=== PATIENT | female | born 1980 | race Caucasian/White ===

== ENCOUNTER → 2018-12-11 08:39 | Outpatient (CLI) | payer SELFPAY ==
[2018-12-11 10:22] LABS: Hematocrit 43.5 % (37-47); Hemoglobin 14.8 g/dl (12.0-15.0); Mean Corpuscular Hgb 31.2 pg (27.0-32.0); Mean Corpuscular Volume 91.6 fL (81-99); Mean Platelet Vol. 9.6 fl (6.2-12.0); Platelet Count 330 K/mm3 (150-450); RBC Distribution Width CV 14.5 % (11.6-14.6); RBC Distribution Width SD 47.9 fl (35.1-43.9); Red Blood Count 4.75 M/mm3 (4.2-5.4); White Blood Count 11.8 K/mm3 (4.4-11.0)
[2018-12-11 10:23] LABS: Scan Indicated on CBC? Y/N NO
[2018-12-11 10:51] LABS: Vitamin D,25 Hydroxy 25.4 ng/mL (29.95-100.01)
[2018-12-11 10:58] LABS: Anion Gap 11 (5-15); BUN 10 mg/dL (7-18); BUN/Creat Ratio 12.7 RATIO (10-20); Calcium,Total 8.6 mg/dL (8.5-10.1); Chloride 108 mmol/L (98-107); Cholesterol 168 mg/dL (200); Creatinine, Serum 0.79 mg/dL (0.55-1.02); EST Glomerular Filtration Rate 87 mL/min (>60); Est Glom Filt Rate - Afr Amer 106 mL/min (>60); Glucose 95 mg/dL (74-106); High Density Lipoprotein 36 mg/dL; Potassium 3.9 mmol/L (3.5-5.1); Sodium Level 141 mmol/L (136-145); Triglycerides 108 mg/dL; Very Low Density Lipoprotein 22 mg/dL (5-40)
== END ==
PROVIDERS: Family Provider Family Medicine; PCP Family Medicine; Referring Provider Family Medicine; Visit Provider Family Medicine
DX: Z13.220 Encounter for screening for lipoid disorders (principal); M79.7 Fibromyalgia; R53.81 Other malaise
CPT/HCPCS: 36415; 80048; 80061; 82306; 85027

== ENCOUNTER → 2019-09-03 09:33 | Outpatient (CLI) | payer BC, SELFPAY ==
[2019-09-03 13:11] LABS: Free T3 1.9 pg/mL (2.18-3.98); T4 Free Direct 0.59 ng/dL (0.76-1.46); Thyroid Stim Hormone (TSH) 3.69 uIU/mL (0.358-3.74)
== END ==
PROVIDERS: PCP Family Medicine; Referring Provider Family Medicine; Visit Provider Family Medicine
DX: E03.9 Hypothyroidism, unspecified (principal)
CPT/HCPCS: 36415; 84439; 84443; 84481

== ENCOUNTER → 2020-02-11 | Outpatient (CLI) | payer BC, SELFPAY ==
[2020-02-11 10:27] LABS: T4 Free Direct 0.86 ng/dL (0.76-1.46)
== END | disposition home or self-care (01) ==
LOC: MFPLAB 09:12
PROVIDERS: PCP Family Medicine; Referring Provider Family Medicine; Visit Provider Family Medicine
DX: E03.9 Hypothyroidism, unspecified (principal)
CPT/HCPCS: 36415; 84439; 84443; 84481

== ENCOUNTER → 2020-02-22 | Outpatient (CLI) | payer BC, SELFPAY | END | disposition home or self-care (01) | LOC: LABSPEC 15:33 | PROVIDERS: PCP Family Medicine; Referring Provider Family Medicine; Visit Provider Family Medicine | DX: Z20.828 Contact with and (suspected) exposure to other viral communicable diseases (principal) | CPT/HCPCS: 87635; U0003 ==

== ENCOUNTER → 2020-03-14 09:45 | Outpatient (CLI) | payer BC, SELFPAY ==
--- NOTE | 2020-03-14 09:47 | RAD_ITS ---
STUDY: X-RAY - LEFT ANKLE REASON FOR EXAM: Female, 40 years old. Pt fell last night, left ankle pain now TECHNIQUE: 3 view(s) of the ankle. COMPARISON: None. FINDINGS: Normal visualized distal tibia and fibula. Normal medial and lateral malleoli. Normal tibiotalar articulation and ankle mortise. A spur is seen at the insertion of the Achilles tendon. Plantar spur. The visualized subtalar, talonavicular, calcaneocuboid and tarsal articulations are normal. Soft tissue swelling overlying the lateral malleolus. RAD/Ankle min 3 Views IMPRESSION: Soft tissue swelling overlying the lateral malleolus. Calcaneal spurs. Electronically Signed: Varun Rosas, at 12:50 EDT , Service support ,
== END ==
LOC: MTRAD 09:47
PROVIDERS: PCP Family Medicine; Referring Provider Family Medicine; Visit Provider Family Medicine
DX: S93.402A Sprain of unspecified ligament of left ankle, initial encounter (principal); W19.XXXA Unspecified fall, initial encounter; M77.32 Calcaneal spur, left foot
CPT/HCPCS: 73610

== ENCOUNTER → 2020-04-21 15:17 | Outpatient (CLI) | payer BC, SELFPAY | PROVIDERS: PCP Family Medicine; Visit Provider Family Medicine | DX: Z20.828 Contact with and (suspected) exposure to other viral communicable diseases (principal) | CPT/HCPCS: 87635; U0003 ==

== ENCOUNTER → 2020-05-05 11:19 | Outpatient (CLI) | payer BC, SELFPAY ==
[2020-05-05 15:17] LABS: Absolute Lymphocyte Count 3.12 X10^3/uL (0.83-4.51); Absolute Neutrophil Count 5.8 X10^3/uL (2.0-7.7); Basophil# 0.07 X10^3/uL; Basophil% 0.7 % (0-1); Eosinophil# 0.41 X10^3/uL; Eosinophils% 4.1 % (0-5); Hematocrit 43.4 % (37-47); Hemoglobin 13.7 g/dL (12.0-15.0); Lymphocyte # 3.12 X10^3/ul (4.0); Lymphocyte % 30.9 % (19-41); Mean Corp Hgb Conc 31.6 g/dL (32-36); Mean Corpuscular Hgb 30.8 pg (27.0-32.0); Mean Corpuscular Volume 97.5 fL (81-99); Mean Platelet Vol. 9.5 fl (6.2-12.0); Monocyte# 0.65 X10^3/uL; Monocyte% 6.4 % (0-10); NRBC Flagged by Analyzer 0 % (0-5); Neutrophil # 5.79 X10^3/uL (2.7-7.7); Neutrophil % 57.3 % (47-70); Platelet Count 322 K/mm3 (150-450); RBC Distribution Width SD 50.9 fl (35.1-43.9); Red Blood Count 4.45 M/mm3 (4.2-5.4); White Blood Count 10.1 K/mm3 (4.4-11.0)
[2020-05-05 15:34] LABS: ALB/GLOB Ratio 0.9 RATIO (0.9-2.4); AST(SGOT) 8 U/L (15-37); Alanine Aminotransfer ALT/SGPT 20 U/L (13-56); Albumin, Serum 3.4 g/dL (3.2-5.0); Alkaline Phosphatase 84 U/L (45-117); Anion Gap 5 (5-15); BUN 9 mg/dL (7-18); BUN/Creat Ratio 9.9 RATIO (10-20); Calcium,Total 9.1 mg/dL (8.5-10.1); Chloride 110 mmol/L (98-107); Creatinine, Serum 0.91 mg/dL (0.55-1.02); EST Glomerular Filtration Rate 74 mL/min (>60); Est Glom Filt Rate - Afr Amer 89 mL/min (>60); Ferritin 236 ng/mL (8-252); Globulin 3.8 g/dL (2.2-4.2); Glucose 84 mg/dL (74-106); Iron 66 ug/dL (50-170); Potassium 4.2 mmol/L (3.5-5.1); Protein, Total 7.2 g/dL (6.4-8.2); Sodium Level 138 mmol/L (136-145); Thyroid Stim Hormone (TSH) 0.75 uIU/mL (0.358-3.74)
[2020-05-05 16:01] LABS: Vitamin B12 352 pg/mL (211-911); Vitamin D,25 Hydroxy 18.9 ng/mL
== END ==
LOC: MFPLAB 11:20
PROVIDERS: PCP Family Medicine; Referring Provider Family Medicine; Visit Provider Family Medicine
DX: R53.83 Other fatigue (principal)
CPT/HCPCS: 36415; 80053; 82306; 82607; 82728; 83540; 84443; 85025

== ENCOUNTER 2020-05-13 17:44 | Outpatient (RCR) | payer BC, SELFPAY ==
--- NOTE | 2020-05-13 18:50 | HP.PTEVAL_ITS ---
Patient's Visit Information CROW MARC is a 40 year old F referred to Physical Therapy by Dr. Ubaldo Garcia MD with a diagnosis of L ankle sprain. Date of Evaluation: 05/13/20 Physical Therapist: Kal Ferrari DPT, OCS, CSCS - Visit Plan Frequency: 1-2x /Week Duration: 4-6 Weeks Plan: start weekly(increase to 2x/week if progress not made quickly with pain, ROM, strength). Progress HEP of ROM(today to strength with band and proprioception adn gait training/pregait. If need increae frequency, will need manual, US and maybe ESTIM. Next: ankle 4 way and SLS if pain down and ROM full. - Subjective Fell off porch 03/14 and rolled adn sprained L ankle. Got brace for a while, now shoe adn light brace. The fall was tripping over water hose. No history with L ankle. Went to doctor next day who x rayed it adn it was fine, just bad sprain. Could not find boot so she bought brace. Hard to walk on at first. A little better now but has to be careful with steps. Tingly in lateral toes at times for nknow reason. Pain is medial and lateral at ankle and constant but worse stabbing and up leg if she steps on it wrong. Still feels weak. Care to be taken with walk. Sleep is OK if she is careful. 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 Is doing this but worse alter in day. No avoidance. Basic aDLs are OK, care to be taken putting on pants sitting down. Putting on shoes is painful and hard due to brace. Cannot run. Steps at home are challenging btu improving. Hobbies include caring for animals and kids(13 adn 16)Nephews 1,3,9) - Pain L ankle Pain Intensity (Out of 10): 3 Pain Intensity Range: 3, 8 Comment: step wrong - Objective L antalgia and avoidance of pushoff walking into PT I with brace on. Steps up with R and down to right, corrected this with her to diminish stress to r ankle and pat needs to use railing. Transfers I. hip and knee aROM and strength about symmetrical. Sensation LE WNL to gross light touch. reflexes 2/3 patella and achilles. metatarsals and big toe move well. ankle AROM L DF 0 PF 40 eversion 0, inversion 25, pain with end eversion adn DF. R ankle df 4, pf 55, eversion 10 and inversion 28. strength L ankle 3+ robinson ll motions, pain with PF, inversion. - talar tilt. - ant drawer at ankle. R ankle 4+/5 all motions at ankle. Swelling is minimal today, no bruising noted. SLS L 2 seconds and R 10+ seconds. - Goals Goal 1:: Full aROM L ankle withotu pain Goal Time Frame: 2-4 Weeks Goal 2:: I appropriate strength L ankle and proprioception to reduce future problems. Goal Time Frame: 4-6 Weeks Goal 3:: Ankle feel 90% back to normal and 1/10 pain at most Goal Time Frame: 4-6 Weeks Goal 4:: Sleep without interruption due to pain Goal Time Frame: 4-6 Weeks Goal 5:: Work without increased pain L ankle Goal Time Frame: 4-6 Weeks Goal 6:: LEFS 60/80 Goal Time Frame: 4-6 Weeks - Rehabilitation Potential Physical Therapy Diagnosis: L ankle sprain. Rehabilitation Potential: Fair - Anticipated Interventions Patient/Client Instruction: Educate patient on: Condition, Plan of Care For the Purpose of:: To decrease pain, To increase ROM, To improve muscle performance and motor function, To increase tolerance to activity/condition/position, To improve ability of physical actions for home/ community/work/leisure Therapeutic Exercise to Include: Strength training, Flexibilty training, Gait and locomotor training, Neuromotor development, Passive ROM, Active ROM For the Purpose of:: To decrease pain, To increase ROM, To improve muscle performance and motor function, To increase tolerance to activity/condition/position, To improve gait and locomotor functions Manual Therapy Techniques to Include: Mobilization, Passive ROM, Soft tissue mobilization For the Purpose of:: To decrease pain, To increase ROM Cryotherapy (ice pack, ice massage): Yes Ultrasound (thermal/non thermal): Yes - nont hermal For the Purpose of:: To decrease pain, To decrease swelling/inflammation Thank you for the opportunity to evaluate your patient. For Medicare and Medicare HMO plans, please review the plan of care and approve it. It will need to be FAXED BACK to us at [phone] for Medicare purposes. For Medicare only, by signing this I certify the plan of care. Please let me know if there are questions or concerns regarding this plan of care. Physician Signature: Date:
--- NOTE | 2020-07-07 15:34 | HP.PT.NRP ---
CROW MARC was seen in my office for initial evaluation on 05/13/20. The following Plan of Care was established for this patient: Initial Frequency: 1-2x /Week Initial Duration: 4-6 Weeks Patient/Client Instruction: Educate patient on: Condition, Plan of Care For the Purpose of:: To decrease pain, To increase ROM, To improve muscle performance and motor function, To increase tolerance to activity/condition/position, To improve ability of physical actions for home/community/work/leisure Therapeutic Exercise to Include: Strength training, Flexibilty training, Gait and locomotor training, Neuromotor development, Passive ROM, Active ROM For the Purpose of:: To decrease pain, To increase ROM, To improve muscle performance and motor function, To increase tolerance to activity/condition/position, To improve gait and locomotor functions Manual Therapy Techniques to Include: Mobilization, Passive ROM, Soft tissue mobilization For the Purpose of:: To decrease pain, To increase ROM Cryotherapy (ice pack, ice massage): Yes Ultrasound (thermal/non thermal): Yes - nont hermal For the Purpose of:: To decrease pain, To decrease swelling/inflammation This patient was last seen in our office 05/13/20. Pertinent comments regarding their Physical therapy will appear below: Pt seen for eval and POC established. Pt negelcted to schedule any further visits. i will discontinue due to nonattendance at this point as it has been almost two months. At this point I will be discontinuing this patient from physical therapy. I would be happy to see this patient again in the future if found appropriate by the physician. Thank you! Kal Ferrari, DPT, OCS, CSCS
== END 2020-05-13 19:00 | disposition home or self-care (01) ==
LOC: PT 17:44
PROVIDERS: PCP Family Medicine; Referring Provider Family Medicine; Visit Provider Family Medicine
DX: S93.402D Sprain of unspecified ligament of left ankle, subsequent encounter (principal)
CPT/HCPCS: 97110; 97161

== ENCOUNTER → 2020-07-21 09:55 | Outpatient (CLI) | payer BC, SELFPAY ==
[2020-07-21 13:51] LABS: Anion Gap 9 (5-15); BUN 11 mg/dL (7-18); BUN/Creat Ratio 12.4 RATIO (10-20); Calcium,Total 8.6 mg/dL (8.5-10.1); Chloride 111 mmol/L (98-107); Creatinine, Serum 0.89 mg/dL (0.55-1.02); EST Glomerular Filtration Rate 76 mL/min (>60); Est Glom Filt Rate - Afr Amer 91 mL/min (>60); Free T3 2.4 pg/mL (2.18-3.98); Glucose 95 mg/dL (74-106); Potassium 3.6 mmol/L (3.5-5.1); Sodium Level 141 mmol/L (136-145); T4 Free Direct 0.75 ng/dL (0.76-1.46); Thyroid Stim Hormone (TSH) 0.67 uIU/mL (0.358-3.74)
== END ==
LOC: MFPLAB 09:56
PROVIDERS: PCP Family Medicine; Visit Provider Family Medicine
DX: E03.9 Hypothyroidism, unspecified (principal)
CPT/HCPCS: 36415; 80048; 84439; 84443; 84481

== ENCOUNTER → 2020-08-18 10:16 | Outpatient (CLI) | payer BC, SELFPAY ==
[2020-08-18 12:51] LABS: Erythrocyte Sedimentation Rate 6 mm/hr (0-30)
[2020-08-18 13:32] LABS: CRP 3.56 mg/L (0.0-3.0); Rheumatoid Factor < 10.0 IU/mL (<15)
[2020-08-20 12:17] LABS: CCP IgG Antibodies 5 units (0-19)
[2020-08-20 14:09] LABS: ANTINUCLEAR ANTIBODIES DIRECT Negative (Negative)
== END ==
LOC: MFPLAB 10:20
PROVIDERS: PCP Family Medicine; Referring Provider Family Medicine; Visit Provider Family Medicine
DX: M25.40 Effusion, unspecified joint (principal)
CPT/HCPCS: 36415; 85652; 86038; 86140; 86200; 86431

== ENCOUNTER → 2020-08-27 07:08 | Outpatient (CLI) | payer BC, SELFPAY ==
--- NOTE | 2020-08-27 08:01 | MRI_ITS ---
STUDY: MRI BRAIN WITH AND WITHOUT CONTRAST REASON FOR EXAM: Female, 40 years old. MIGRAINE HEADACHE TECHNIQUE: Standardized multiplanar fat and water weighted pulse sequences were obtained. 18ML IV DOTAREM was administered for the contrast portion of the examination. COMPARISON: 05/28/2010 FINDINGS: Normal size of the ventricles and extra-axial spaces for the patient''s age. Normal white matter tracts of the supratentorial brain. Normal bilateral basal ganglia. Normal thalami. There is no extra-axial fluid accumulation. Normal flow voids within the major intracranial circulation suggesting patency by spin echo criteria. Normal venous enhancement. There is no enhancing intra-axial or extra-axial abnormality. Normal sella turcica, pituitary gland, infundibular stalk, optic chiasm and hypothalamus. Normal tectal plate and pineal gland. Normal midbrain, mo and medulla. Normal cerebellum. Normal basal cisterns. Normal bilateral temporal bones. MRI/Brain W/WO Contrast IMPRESSION: Unremarkable unenhanced and enhanced MRI of the brain. Electronically Signed: Lan Bajwa MD at 15:50 EST Tel , Service support ,
== END ==
PROVIDERS: PCP Family Medicine; Referring Provider Family Medicine; Visit Provider Family Medicine
DX: G43.909 Migraine, unspecified, not intractable, without status migrainosus (principal)
CPT/HCPCS: 70553; A9575

== ENCOUNTER → 2020-11-17 19:54 | Outpatient (CLI) | payer BC, SELFPAY | PROVIDERS: PCP Family Medicine; Referring Provider Psychiatry & Neurology Neurology; Visit Provider Psychiatry & Neurology Neurology | DX: G47.30 Sleep apnea, unspecified (principal); R06.83 Snoring; R53.83 Other fatigue | CPT/HCPCS: 95810 ==

== ENCOUNTER → 2021-01-05 10:28 | Outpatient (CLI) | payer BC, SELFPAY ==
[2020-12-15 08:49] VITALS: BMI 36.8
[2021-01-05 12:53] LABS: Hematocrit 41.1 % (37-47); Hemoglobin 13.8 g/dL (12.0-15.0); Mean Corp Hgb Conc 33.6 g/dL (32-36); Mean Corpuscular Hgb 31.2 pg (27.0-32.0); Mean Platelet Vol. 9.7 fl (6.2-12.0); Platelet Count 299 K/mm3 (150-450); RBC Distribution Width SD 48.6 fl (35.1-43.9); Red Blood Count 4.42 M/mm3 (4.2-5.4); White Blood Count 9.4 K/mm3 (4.4-11.0)
[2021-01-05 12:58] LABS: Erythrocyte Sedimentation Rate 13 mm/hr (0-30)
[2021-01-05 13:49] LABS: AST(SGOT) 13 U/L (15-37); Alanine Aminotransfer ALT/SGPT 17 U/L (13-56); Albumin, Serum 3.4 g/dL (3.2-5.0); Alkaline Phosphatase 90 U/L (45-117); Anion Gap 8 (5-15); BUN 11 mg/dL (7-18); BUN/Creat Ratio 14.1 RATIO (10-20); Calcium,Total 8.5 mg/dL (8.5-10.1); Chloride 113 mmol/L (98-107); Creatinine, Serum 0.78 mg/dL (0.55-1.02); EST Glomerular Filtration Rate 88 mL/min (>60); Est Glom Filt Rate - Afr Amer 106 mL/min (>60); Free T3 3.1 pg/mL (2.18-3.98); Globulin 3.5 g/dL (2.2-4.2); Glucose 116 mg/dL (74-106); Potassium 3.6 mmol/L (3.5-5.1); Protein, Total 6.9 g/dL (6.4-8.2); Sodium Level 139 mmol/L (136-145); T4 Free Direct 0.77 ng/dL (0.76-1.46); Thyroid Stim Hormone (TSH) 0.99 uIU/mL (0.358-3.74)
[2021-01-05 15:48] LABS: Vitamin B12 307 pg/mL (211-911)
[2021-01-06 16:08] LABS: Free Kappa Light Chains 26.2 mg/L (3.3-19.4); Free Lambda Light Chains 33.4 mg/L (5.7-26.3)
== END ==
LOC: MTLAB 10:30
PROVIDERS: PCP Family Medicine; Referring Provider Psychiatry & Neurology Neurology; Visit Provider Psychiatry & Neurology Neurology
DX: R79.82 Elevated C-reactive protein (CRP) (principal); E03.9 Hypothyroidism, unspecified; G62.9 Polyneuropathy, unspecified
CPT/HCPCS: 36415; 80053; 82607; 82746; 83883; 84439; 84443; 84481; 85027; 85652; 86140

== ENCOUNTER → 2021-03-30 11:09 | Outpatient (CLI) | payer BC, SELFPAY ==
[2021-03-30 15:40] LABS: Hemoglobin A1c 5.4 % (3.8-5.6)
[2021-03-30 15:48] LABS: ALB/GLOB Ratio 0.8 RATIO (0.9-2.4); AST(SGOT) 9 U/L (15-37); Alanine Aminotransfer ALT/SGPT 12 U/L (13-56); Albumin, Serum 3.3 g/dL (3.2-5.0); Alkaline Phosphatase 81 U/L (45-117); Anion Gap 9 (5-15); BUN 11 mg/dL (7-18); BUN/Creat Ratio 14.2 RATIO (10-20); Calcium,Total 8.7 mg/dL (8.5-10.1); Chloride 112 mmol/L (98-107); Creatinine, Serum 0.77 mg/dL (0.55-1.02); EST Glomerular Filtration Rate 88 mL/min (>60); Est Glom Filt Rate - Afr Amer 107 mL/min (>60); Free T3 2.6 pg/mL (2.18-3.98); Globulin 3.9 g/dL (2.2-4.2); Glucose 90 mg/dL (74-106); Potassium 3.4 mmol/L (3.5-5.1); Protein, Total 7.2 g/dL (6.4-8.2); Sodium Level 140 mmol/L (136-145); T4 Free Direct 0.78 ng/dL (0.76-1.46)
== END ==
LOC: MTLAB 11:10
PROVIDERS: PCP Family Medicine; Referring Provider Psychiatry & Neurology Neurology; Visit Provider Psychiatry & Neurology Neurology
DX: E03.9 Hypothyroidism, unspecified (principal); R73.9 Hyperglycemia, unspecified; G62.89 Other specified polyneuropathies
CPT/HCPCS: 36415; 80053; 82784; 83036; 84165; 84439; 84443; 84481; 86334; 86335

== ENCOUNTER → 2021-04-20 12:12 | Outpatient (CLI) | payer BC, SELFPAY ==
[2021-04-20 15:40] LABS: Potassium 3.8 mmol/L (3.5-5.1)
[2021-04-22 15:08] LABS: Albumin 3.3 g/dL (2.9-4.4); Alpha-1-Globulins 0.2 g/dL (0.0-0.4); Alpha-2-Globulins 0.8 g/dL (0.4-1.0); Gamma Globulin 1.1 g/dL (0.4-1.8); Immunoglobulin A 331 mg/dL (87-352); Immunoglobulin G 981 mg/dL (586-1602); Immunoglobulin M 68 mg/dL (26-217); PROEL- TOTAL PROTEIN 6.5 g/dL (6.0-8.5)
== END ==
PROVIDERS: PCP Family Medicine; Referring Provider Psychiatry & Neurology Neurology; Visit Provider Psychiatry & Neurology Neurology
DX: G62.89 Other specified polyneuropathies (principal); E87.6 Hypokalemia
CPT/HCPCS: 36415; 82784; 84132; 84165; 86334

== ENCOUNTER → 2022-04-05 | Outpatient (CLI) | payer OTHER, SELFPAY ==
[2022-04-05 10:22] LABS: Absolute Neutrophil Count 6.1 X10^3/uL (2.0-7.7); Basophil# 0.07 X10^3/uL; Basophil% 0.7 % (0-1); Eosinophil# 0.48 X10^3/uL; Eosinophils% 4.8 % (0-5); Hematocrit 45.8 % (37-47); Hemoglobin 14.8 g/dL (12.0-15.0); Lymphocyte % 26.8 % (19-41); Mean Corp Hgb Conc 32.3 g/dL (32-36); Mean Corpuscular Hgb 31.1 pg (27.0-32.0); Mean Corpuscular Volume 96.2 fL (81-99); Mean Platelet Vol. 9.5 fl (6.2-12.0); Monocyte# 0.66 X10^3/uL; Monocyte% 6.6 % (0-10); NRBC Flagged by Analyzer 0 % (0-5); Neutrophil % 60.6 % (47-70); Platelet Count 285 K/mm3 (150-450); RBC Distribution Width CV 13.8 % (11.6-14.6); RBC Distribution Width SD 49.2 fl (35.1-43.9); Red Blood Count 4.76 M/mm3 (4.2-5.4); White Blood Count 10.1 K/mm3 (4.4-11.0)
[2022-04-05 10:46] LABS: ALB/GLOB Ratio 0.8 RATIO (0.9-2.4); AST(SGOT) 17 U/L (15-37); Alanine Aminotransfer ALT/SGPT 27 U/L (13-56); Albumin, Serum 3.3 g/dL (3.2-5.0); Alkaline Phosphatase 88 U/L (45-117); Anion Gap 6 (5-15); BUN 6 mg/dL (7-18); Chloride 107 mmol/L (98-107); Cholesterol 185 mg/dL (200); Creatinine, Serum 0.75 mg/dL (0.55-1.02); EST Glomerular Filtration Rate 92 mL/min (>60); Est Glom Filt Rate - Afr Amer 111 mL/min (>60); Globulin 4.2 g/dL (2.2-4.2); Glucose 105 mg/dL (74-106); High Density Lipoprotein 37 mg/dL; Potassium 4.3 mmol/L (3.5-5.1); Protein, Total 7.5 g/dL (6.4-8.2); Sodium Level 139 mmol/L (136-145); T4 Free Direct 0.76 ng/dL (0.76-1.46); Thyroid Stim Hormone (TSH) 1.15 uIU/mL (0.358-3.74); Triglycerides 87 mg/dL; Very Low Density Lipoprotein 17 mg/dL (5-40)
[2022-04-05 11:14] LABS: Hemoglobin A1c 5.6 % (3.8-5.6)
== END | disposition home or self-care (01) ==
LOC: MTLAB 08:31
PROVIDERS: PCP Family Medicine; Referring Provider Family Medicine; Visit Provider Family Medicine
DX: I10 Essential (primary) hypertension (principal); E03.9 Hypothyroidism, unspecified
CPT/HCPCS: 36415; 80053; 80061; 83036; 84439; 84443; 85025

== ENCOUNTER → 2022-11-01 | Outpatient (CLI) | payer OTHER, SELFPAY ==
--- NOTE | 2022-11-01 08:08 | BI_ITS ---
MAMMOGRAPHY - BILATERAL SCREENING REASON FOR EXAM: Female, 42 years old. Routine annual screening examination. PERTINENT HISTORY: Aunts with breast cancer. TECHNIQUE: Digital bilateral breast haim (3D mammographic acquisition) in the CC and MLO projections. 2-D mediolateral oblique (MLO) and craniocaudad (CC) views of both breasts were obtained. CAD: Full Field Digital Mammography with Computer Added Detection was performed. COMPARISON: None. Baseline examination. FINDINGS: Breast Composition: There are scattered areas of fibroglandular density. There are no dominant masses or suspicious calcifications. Benign appearing bilateral axillary lymph nodes. No other significant abnormalities are identified. BI/SCRN MAMM (CAD)W/HAIM BILAT IMPRESSION: Negative screening mammogram. Yearly followup mammogram recommended. (A) ASSESSMENT CATEGORY: Approximately 10% of breast cancers are not detected by mammography. A normal mammogram should not delay biopsy of a clinically suspicious abnormality. [id number] Electronically Signed: Varun Rosas MD at 9:25 EDT ,
== END | disposition home or self-care (01) ==
LOC: OPBI 08:06
PROVIDERS: PCP Family Medicine; Referring Provider Family Medicine; Visit Provider Family Medicine
DX: Z12.31 Encounter for screening mammogram for malignant neoplasm of breast (principal)
CPT/HCPCS: 77063; 77067

== ENCOUNTER → 2023-01-10 | Outpatient (CLI) | payer OTHER, SELFPAY ==
[2023-01-10 12:09] LABS: Hematocrit 41.9 % (37-47); Hemoglobin 14.2 g/dL (12.0-15.0); Mean Corp Hgb Conc 33.9 g/dL (32-36); Mean Corpuscular Hgb 31.9 pg (27.0-32.0); Mean Corpuscular Volume 94.2 fL (81-99); Mean Platelet Vol. 9.5 fl (6.2-12.0); Platelet Count 283 K/mm3 (150-450); RBC Distribution Width CV 13.9 % (11.6-14.6); RBC Distribution Width SD 48.1 fl (35.1-43.9); Red Blood Count 4.45 M/mm3 (4.2-5.4); White Blood Count 8.3 K/mm3 (4.4-11.0)
[2023-01-10 12:33] LABS: Vitamin B12 534 pg/mL (211-911)
[2023-01-10 12:40] LABS: ALB/GLOB Ratio 0.8 RATIO (0.9-2.4); AST(SGOT) 11 U/L (15-37); Alanine Aminotransfer ALT/SGPT 17 U/L (13-56); Albumin, Serum 3.2 g/dL (3.2-5.0); Alkaline Phosphatase 89 U/L (45-117); Anion Gap 6 (5-15); BUN 8 mg/dL (7-18); BUN/Creat Ratio 11.9 RATIO (10-20); Calcium,Total 8.7 mg/dL (8.5-10.1); Chloride 111 mmol/L (98-107); Creatinine, Serum 0.67 mg/dL (0.55-1.02); EST Glomerular Filtration Rate 103 mL/min (>60); Est Glom Filt Rate - Afr Amer 125 mL/min (>60); Free T3 2.8 pg/mL (2.18-3.98); Glucose 107 mg/dL (74-106); Potassium 3.8 mmol/L (3.5-5.1); Protein, Total 7.2 g/dL (6.4-8.2); Sodium Level 137 mmol/L (136-145); T4 Free Direct 0.77 ng/dL (0.76-1.46); Thyroid Stim Hormone (TSH) 1.79 uIU/mL (0.358-3.74)
== END | disposition home or self-care (01) ==
PROVIDERS: PCP Family Medicine; Referring Provider Psychiatry & Neurology Neurology; Visit Provider Psychiatry & Neurology Neurology
DX: G62.89 Other specified polyneuropathies (principal); E03.9 Hypothyroidism, unspecified
CPT/HCPCS: 36415; 80053; 82607; 82746; 84425; 84439; 84443; 84481; 85027

== ENCOUNTER → 2023-03-07 | Outpatient (CLI) | payer OTHER, SELFPAY ==
--- NOTE | 2023-03-07 14:29 | NEURO ---
NCS and/or EMG Patient Report Ordering Doctor: Nicholas Guadarrama DATE OF SERVICE: 03/07/23 Findings: Nerve conduction studies were performed in the right and left upper extremities. The right median motor study recording the abductor pollicis brevis showed a normal amplitude, prolonged distal latency and slowed conduction velocity. The right ulnar motor study recording the abductor digiti minimi showed a normal amplitude, normal distal latency and normal conduction velocity. No conduction block or focal slowing was present across the elbow. The right median sensory response recording digit two showed a markedly reduced amplitude, prolonged latency and markedly slowed conduction velocity. The right ulnar sensory response recording digit five showed a normal amplitude, latency and conduction velocity. The right radial sensory response recording over the extensor snuff box showed a normal amplitude, latency and conduction velocity. The left median motor study recording the abductor pollicis brevis showed a normal amplitude, prolonged distal latency and slowed conduction velocity. The left ulnar motor study recording the abductor digiti minimi showed a normal amplitude, normal distal latency and normal conduction velocity. No conduction block or focal slowing was present across the elbow. The left median sensory response recording digit two showed a markedly reduced amplitude, prolonged latency and markedly slowed conduction velocity. The left ulnar sensory response recording digit five showed a normal amplitude, latency and conduction velocity. The left radial sensory response recording over the extensor snuff box showed a normal amplitude, latency and conduction velocity. Right median-ulnar lumbrical / interosseous motor latencies showed a prolonged median latency compared to the ulnar. Left median-ulnar lumbrical / interosseous motor latencies showed a prolonged median latency compared to the ulnar. Needle EMG of the left upper extremity muscles was performed. No denervation was seen in any muscle. All motor unit morphology, activation and recruitment patterns were normal. Needle EMG of the right upper extremity given the confirmatory nerve conductions, symmetry of symptoms and lack of findings on the left. Impression: This is an abnormal study. 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 The pathophysiology is demyelinating with significant secondary sensory axon loss. These findings are compatible with the clinical diagnosis of carpal tunnel syndrome. In addition, there is no electrophysiologic evidence of superimposed cervical radiculopathy in the left upper extremity. Venkatesh Marinelli D.O.
== END | disposition home or self-care (01) ==
LOC: PSN 12:33
PROVIDERS: PCP Family Medicine; Referring Provider Psychiatry & Neurology Neurology; Visit Provider Psychiatry & Neurology Neurology
DX: G56.03 Carpal tunnel syndrome, bilateral upper limbs (principal); G62.89 Other specified polyneuropathies; G56.20 Lesion of ulnar nerve, unspecified upper limb
CPT/HCPCS: 95886; 95913

== ENCOUNTER → 2023-03-21 | Outpatient (CLI) | payer OTHER, SELFPAY ==
[2023-03-21 15:57] LABS: Cholesterol 178 mg/dL (200); Free T3 2.9 pg/mL (2.18-3.98); Hemoglobin A1c 5.6 % (3.8-5.6); High Density Lipoprotein 35 mg/dL; T4 Free Direct 0.82 ng/dL (0.76-1.46); Thyroid Stim Hormone (TSH) 1.83 uIU/mL (0.358-3.74); Triglycerides 87 mg/dL; Very Low Density Lipoprotein 17 mg/dL (5-40)
[2023-03-21 16:39] LABS: Microalbumin,Random Urine < 5.0 mg/L (NO RANGE EST.)
== END | disposition home or self-care (01) ==
PROVIDERS: PCP Family Medicine; Referring Provider Family Medicine; Visit Provider Family Medicine
DX: I10 Essential (primary) hypertension (principal); E03.9 Hypothyroidism, unspecified; Z68.37 Body mass index [BMI] 37.0-37.9, adult
CPT/HCPCS: 36415; 80061; 82043; 82570; 83036; 84439; 84443; 84481

== ENCOUNTER → 2024-07-02 | Outpatient (CLI) | payer OTHER, SELFPAY ==
[2024-07-02 18:58] LABS: Anion Gap 5 (5-15); BUN 8 mg/dL (7-18); BUN/Creat Ratio 10.6 RATIO (10-20); Calcium,Total 8.7 mg/dL (8.5-10.1); Chloride 110 mmol/L (98-107); Cholesterol 175 mg/dL (200); Creatinine, Serum 0.76 mg/dL (0.55-1.02); EST Glomerular Filtration Rate 89 mL/min (>60); Est Glom Filt Rate - Afr Amer 108 mL/min (>60); Glucose 95 mg/dL (74-106); High Density Lipoprotein 36 mg/dL; Potassium 3.7 mmol/L (3.5-5.1); Sodium Level 139 mmol/L (136-145); T4 Total, Thyroxin 7.5 ug/dL (4.8-13.9); Triglycerides 165 mg/dL; Very Low Density Lipoprotein 33 mg/dL (5-40)
[2024-07-02 19:15] LABS: Protein, Urine (Random) 13.6 mg/dL (<11.9); Protein:Creat Ratio 89 mg/g CRE (0-200)
== END | disposition home or self-care (01) ==
LOC: MFPLAB 14:35
PROVIDERS: PCP Family Medicine; Referring Provider Family Medicine; Visit Provider Family Medicine
DX: I10 Essential (primary) hypertension (principal); E03.9 Hypothyroidism, unspecified
CPT/HCPCS: 36415; 80048; 80061; 82570; 84156; 84436; 84443

== ENCOUNTER → 2024-07-09 | Outpatient (CLI) | payer OTHER, SELFPAY ==
--- NOTE | 2024-07-09 12:41 | BI_ITS ---
MAMMOGRAPHY - BILATERAL SCREENING REASON FOR EXAM: Female, 44 years old. Routine annual screening examination. PERTINENT HISTORY: Aunts with breast cancer. TECHNIQUE: Digital bilateral breast haim (3D mammographic acquisition) in the CC and MLO projections. 2-D mediolateral oblique (MLO) and craniocaudad (CC) views of both breasts were obtained. CAD: Full Field Digital Mammography with Computer Added Detection was performed. COMPARISON: Comparison is made with prior study dated October 2022. FINDINGS: Breast Composition: There are scattered areas of fibroglandular density. There are no dominant masses or suspicious calcifications. Stable bilateral benign-appearing axillary lymph nodes. No other significant abnormalities are identified. There has been no significant change since the prior study. BI/SCRN MAMM (CAD)W/HAIM BILAT IMPRESSION: Stable bilateral screening mammogram. Yearly follow-up mammogram recommended. (A) ASSESSMENT CATEGORY: BIRADS Category 2: Benign. A letter regarding these results will be sent to the patient by the facility within 30 days. Approximately 10% of breast cancers are not detected by mammography. A normal mammogram should not delay biopsy of a clinically suspicious abnormality. [id number] Electronically Signed: Varun Rosas MD at 13:51 EST ,
== END | disposition home or self-care (01) ==
LOC: OPBI 12:40
PROVIDERS: PCP Family Medicine; Referring Provider Family Medicine; Visit Provider Family Medicine
DX: Z12.31 Encounter for screening mammogram for malignant neoplasm of breast (principal)
CPT/HCPCS: 77063; 77067

== ENCOUNTER → 2024-12-24 | Outpatient (CLI) | payer OTHER, SELFPAY ==
[2024-12-24 11:36] LABS: Anion Gap 10 (5-15); BUN 8 mg/dL (4-19); BUN/Creat Ratio 12.7 RATIO (10-20); Calcium,Total 9.1 mg/dL (7.6-11.0); Carbon Dioxide 21.2 mmol/L (21.0-32.0); Chloride 105 mmol/L (98-108); Cholesterol 180 mg/dL (<=200); EST Glomerular Filtration Rate 115 (>60); Glucose 108 mg/dL (70-99); High Density Lipoprotein 31 mg/dL; Low Density Lipoprotein Calc. 118 mg/dL; Potassium 4.1 mmol/L (3.3-5.1); Sodium Level 136 mmol/L (133-145); Triglycerides 154 mg/dL; Very Low Density Lipoprotein 31 mg/dL (5-40); cholesterol:hdl ratio screen 5.77
[2024-12-24 11:37] LABS: T4 Total, Thyroxin 5.7 ug/dL (4.8-13.9)
== END | disposition home or self-care (01) ==
PROVIDERS: PCP Family Medicine; Referring Provider Family Medicine; Visit Provider Family Medicine
DX: E03.9 Hypothyroidism, unspecified (principal); I10 Essential (primary) hypertension
CPT/HCPCS: 36415; 80048; 80061; 84436; 84443

== ENCOUNTER → 2025-03-04 | Outpatient (CLI) | payer OTHER, SELFPAY | END | disposition home or self-care (01) | LOC: MTLAB 08:35 | PROVIDERS: PCP Family Medicine; Referring Provider Family Medicine; Visit Provider Family Medicine | DX: E03.9 Hypothyroidism, unspecified (principal) | CPT/HCPCS: 36415; 84443 ==